=== PATIENT | male | born 1945 | race Caucasian/White ===

== ENCOUNTER → 2017-02-26 | Outpatient (CLI) | payer MEDICARE, OTHER ==
[~2017-02-26] MED LIST: ADOXA100 MG PO; ASPIRIN ADULT L81 M2 PO; COMBIVENT INH14.7 GM IN; FIBER CHOICE1 CTB PO; LIPITOR10 MG PO; LOSARTAN POTASS25 MG PO; METOPROLOL25 MG PO; NEXIUM40 MG PO; TUSSIONEX PENN115 ML PO
--- NOTE | 2017-03-04 10:00 | RADIOLOGY REPORT PS360 ---
EXAM: CT LUNG LOW DOSE WO CONTRAST COMPARISON: None HISTORY: A 71-year-old. States 1 pack a day for 50-60 years. .. Overall up to 50-60 pack-years history of smoking TECHNIQUE: The exam was performed on a GE Light Speed [address] scanner using 3.0 mGy CTDI. A low dose helical CT CHEST was performed on a multi-detector scanner The LDCT was performed in a facility that meets the criteria for the screening program. Data regarding this exam was submitted to [employer]CR which is an approved registry. The order for this exam indicates that it came as a result of a lung cancer screening counseling shard decision-making visit that included all the elements required of such a visit including smoking cessation. The radiologist interpreting this exam meets the CMS criteria for the LDCT lung cancer screening program. The exam is reported using the Lung-RADS classification scale and reported to the ACR registry. NOTE: This study was performed for the specific purposes of lung cancer screening and is not an alternative to diagnostic chest CT. RADIATION DOSE: CTDI vol(CT dose Index-volume) = 2.96mGy DLP (Dose Length Product) = 117.47 mGy-cm ---FINDINGS:----- Lung Nodules: Indeterminate Lung Nodules(Category3-):- Small just over 4 mm (nearly 4.3 mm maximum) noncalcified nonspecific lung nodule is seen at the periphery RML, lateral segment (axial slice 52. Sagittal 25) Also note clearly Benign calcified millimeters nodule nodule at at the left lung base up to 6 mm size. Associated minimal calcified left hilar and calcified subcarinal lymph node also reflect old granulomatous disease. Lung Parenchyma: Emphysema: Mild diffuse centrilobular emphysematous changes. Mild hyperexpansion . Scattered small bleb formation seen at about the right arpit, appear mediastinal and towards apices is specifically noted Airways disease: Mild Bronchiectatic bilaterally, slightly more evident right lung and towards lung bases.. Also note generous caliber of airways at the araceli and mainq and main right and left bronchus. Minimal density at the origin of the right lower lobe bronchus most likely reflecting mucoid material. This too would benefit from follow-up Minimal fibrotic scarring is seen towards the right CP angle most likely accounting for fairly linear density here at the medial posterior sulcus and right CP angle region. : Scattered areas of subtle patchy peripheral fibrotic changes most otherwise noted and may reflect old scarring OTHER ANATOMIC REGIONS Lymph Nodes: No enlarged lymph nodes evident. Calcified node left arpit and subcarinal region reflect old granulomatous disease Pleura: Unremarkable Cardiac: Mild/moderate calcified coronary arteries. Calcification LAD left main RCA. No pleural effusion. OTHER FINDINGS: No other pertinent findings evident Right lobe of thyroid upper normal size. A marginal osteophytes cervical spondylosisqq C6/7 instantly noted IMPRESSION:----- 1. Lung RADS Category: 3. Probable benign . Nonspecific 4.3 mm noncalcified nodule periphery RML. . Most likely benign but warrants follow-up CT in 6-8 months to confirm baseline stability 2. COPD. Emphysematous changes. 3. Mild developing bronchiectatic changes bilaterally, most evident right lung, & towards the lung bases. 4. Other minor observations in text: -Likely likely minimal mucoid material accounts for some minimal density along the wall of the generous caliber right lower lobe bronchus -Minimal coronary artery calcification incidentally noted. RECOMMENDATIONS: 6-8 monthd LDCT follow-up
== END ==
LOC: RAD 12:37
DX: Z87.891 Personal history of nicotine dependence (principal); Z12.2 Encounter for screening for malignant neoplasm of respiratory organs
CPT/HCPCS: G0297

== ENCOUNTER → 2017-09-04 | Outpatient (CLI) | payer MEDICARE, OTHER ==
[2017-09-04 09:59] LABS: HEMOGLOBIN 16.6 g/dL (14.1-18.0); LYMPH # 1.6 K/mm3 (0.7-4.5); LYMPH % 19.3 % (10-50)
[2017-09-04 12:54] LABS: BUN 12 mg/dL (7-18)
[2017-09-04 12:55] LABS: GFR (ESTIMATED) 111 ML/MIN (>60)
== END ==
LOC: LAB 09:20
PROVIDERS: Internal Medicine Adolescent Medicine
DX: R73.9 Hyperglycemia, unspecified (principal); E78.5 Hyperlipidemia, unspecified; I25.10 Atherosclerotic heart disease of native coronary artery without angina pectoris